=== PATIENT | female | born 1970 | race Caucasian/White ===

== ENCOUNTER 2017-12-12 05:20 | Day surgery (SDC) | payer OTHER ==
[2017-12-05 11:47] LABS: HEMATOCRIT 42.5 % (36.0-47.0); HEMOGLOBIN 15.1 g/dL (12.0-15.5); MEAN CORPUSCULAR HEMOGLOBIN 32.4 pg (27.0-33.4); MEAN CORPUSCULAR HGB CONC 35.6 g/dL (32.0-36.0); MEAN CORPUSCULAR VOLUME 91 fl (80-97); PLATELET COUNT 263 10^3/uL (150-450); RED BLOOD COUNT 4.67 10^6/uL (3.72-5.28); RED CELL DISTRIBUTION WIDTH 12.4 % (11.5-14.0)
[2017-12-05 12:24] LABS: ALANINE AMINOTRANSFERASE 15 U/L (9-52); ALBUMIN 4.5 g/dL (3.5-5.0); ALKALINE PHOSPHATASE 68 U/L (38-126); ANION GAP 13 (5-19); ASPARTATE AMINO TRANSFERASE 20 U/L (14-36); BILIRUBIN,DIRECT 0.3 mg/dL (0.0-0.4); BILIRUBIN,TOTAL 0.5 mg/dL (0.2-1.3); BLOOD UREA NITROGEN 15 mg/dL (7-20); CALCIUM 10.1 mg/dL (8.4-10.2); CARBON DIOXIDE 30 mmol/L (22-30); CHLORIDE 101 mmol/L (98-107); GLUCOSE 82 mg/dL (75-110); POTASSIUM 4.6 mmol/L (3.6-5.0); SODIUM 143.6 mmol/L (137-145); TOTAL PROTEIN 7.3 g/dL (6.3-8.2)
[~2017-12-12 05:20] MED LIST: CEFAZOLIN 2 GM/D5W RTU 2 GM/50 ML RTUPB IV SCH; LACTATED RINGERS 1000 ML IV PRN; LIDOCAINE 0.5% INJ-PF (5 MG/ML) 50 ML SDV SUBCUT PRN; NORMAL SALINE 1000 ML 1,000 ML IV PRN; RINGERS SOLUTION,LACTATED 1,000 ML IV PRN
[2017-12-12] MEDS ORDERED: PROPOFOL INJ 200 MG/20 ML VIAL IV ONE (06:40)
[2017-12-12] MEDS ORDERED: FENTANYL CITRATE INJ/PF 250 MCG/5 ML AMPULE ONE (06:40)
[2017-12-12] MEDS ORDERED: ONDANSETRON HCL INJ/PF 4 MG/2 ML SDV ONE (06:40)
[2017-12-12] MEDS ORDERED: MIDAZOLAM 2 MG/2 ML INJ ONE (06:40)
[2017-12-12] MEDS ORDERED: LIDOCAINE 2% INJ-PF (20 MG/ML) 10 ML AMPUL ONE (06:40)
[2017-12-12] MEDS ORDERED: BUPIVACAINE HCL 0.25 % INJ/PF (2.5 MG/1 ML) 30 ML VIAL ONE (06:41)
[2017-12-12] MEDS ORDERED: OXYCODONE-ACETAMINOPHEN 5-325 MG TABLET PO PRN ×3 (09:04→10:36)
[2017-12-12] MEDS ORDERED: MORPHINE SULFATE 10 MG/ML INJ IV PRN ×2 (09:04→10:36)
[2017-12-12] MEDS ORDERED: DIPHENHYDRAMINE HCL 50 MG/ML VIAL IV PRN (09:04)
[2017-12-12] MEDS ORDERED: FENTANYL CITRATE INJ/PF 100 MCG/2 ML AMPUL IV PRN ×3 (09:04)
[2017-12-12] MEDS ORDERED: MEPERIDINE HCL/PF INJ 25 MG/1 ML DISP.SYRIN IV PRN (09:04)
[2017-12-12] MEDS ORDERED: PROMETHAZINE HCL INJ 25 MG/1 ML VIAL IV PRN ×3 (09:04→10:37)
[2017-12-12] MEDS ORDERED: OXYCODONE HCL IR 5 MG TABLET PO PRN (10:36)
[2017-12-12] MEDS ORDERED: ONDANSETRON HCL INJ/PF 4 MG/2 ML SDV IV PRN (10:37)
[2017-12-12] MEDS ORDERED: NORMAL SALINE 1000 ML 1,000 ML IV ONE (10:45)
[2017-12-12] MEDS ORDERED: HYDROMORPHONE HCL 2 MG TABLET PO PRN (10:52)
[2017-12-12] MEDS ORDERED: KETOROLAC TROMETHAMINE INJ/PF 30 MG/1 ML SDV ONE (11:06)
--- NOTE | 2017-12-12 11:15 | OPERATIVE REPORT E ---
Operative Report NAME: TANI JACKSON : 1970 AGE: 47Y DATE OF SURGERY: 12/12/2017 ROOM: PREOPERATIVE DIAGNOSIS: 1. MENOMETRORRHAGIA, UNRESPONSIVE TO MEDICAL THERAPY. 2. UTERINE FIBROID. 3. CHRONIC PELVIC PAIN. POSTOPERATIVE DIAGNOSIS: 1. MENOMETRORRHAGIA, UNRESPONSIVE TO MEDICAL THERAPY. 2. UTERINE FIBROID. 3. CHRONIC PELVIC PAIN. OPERATION: 1. Robotic total laparoscopic hysterectomy. 2. Bilateral salpingectomy and remnants of the fallopian tubes. 3. Cystoscopy. SURGEON: Antoinette Wilkinson MD ANESTHESIA: General. ESTIMATED BLOOD LOSS: 100 mL. INTRAVENOUS FLUIDS: 1500 mL, 200 mL clear urine at end of procedure. COMPLICATIONS: None. INDICATION: The patient is a 47-year-old G2, P2 who has had menometrorrhagia for several years, who has attempted multiple regimens without resolution of her symptoms. The patient also has a history of uterine fibroids and chronic pain. The patient desires definitive surgical treatment. Counseling of robotic hysterectomy included but not limited to bleeding, infection, injury to surrounding organs or tissue, need of transfusion or the possibility of exploratory laparotomy in case there is bleeding that could not be identified or visualized during the surgical procedure or too many adhesions from her previous surgical history. The patient understood and consented to procedure and agreed to proceed to the operating room. FINDINGS: 1. Boggy adenomyosis-like uterus. 2. Remnants of fallopian tubes on the right and left with hydrosalpinx bilaterally. The patient has had a history of bilateral tubal ligation. 3. Normal ovaries bilaterally. 4. Normal cystoscopy findings. Normal ureters, efflux bilaterally and normal integrity of the bladder wall mucosa. DESCRIPTION OF PROCEDURE: The patient was taken to the operating room. General anesthesia was induced without difficulty. The patient was placed in the dorsal lithotomy position and was thoroughly prepped and draped in the usual sterile fashion. A bear-hugger was placed to maintain control of core body temperature. Ludwig catheter was placed in the bladder. A heavy-weighted speculum was inserted in the vaginal mucosa. A single-toothed tenaculum was placed on the anterior lip of the cervix. Cervical os was dilated with Hegar dilators. Hegar dilators were used to dilate the cervix. Two [id number] stitches around 3 and 9 o'clock were placed with anchoring stitches prior to placing the VCare. The VCare manipulator was attached to the uterus with a cervical ring and anchored to the stitches on the right and the left. The weighted speculum was removed from the vaginal mucosa. Single-toothed tenaculum was removed from the anterior lip of the cervix. Then, the courses of 2 sutures were placed on the lateral aspects of the cervix to be used as traction later in the case if needed along the Vcare, as well as they were anchored within the Vcare itself. A horizontal supraumbilical incision was performed. The Veress needle was introduced without difficulty. A drop test was performed and was successful. Carbon dioxide was infused until pneumoperitoneum was obtained and this was, of course, after performing the water drop test, which was successfully performed. The Veress needle was then removed. The supraumbilical incision was slightly extended and 12 mm trocar and the camera was introduced into the abdominal cavity under direct visualization without any difficulty. The trocar itself was removed. Robotic laparoscopic was placed in the abdominal cavity. Please see the above findings. Intraperitoneal placement was then confirmed. Local anesthesia was used at all ports prior to placing the surgery ports. Two 8 mm surgery ports were placed inferiorly to the umbilicus and lateral to the rectus muscles bilaterally. These ports were in the abdominal cavity under direct visualization. One was on the right lower and one on the left lower quadrant. An assistive port was then inserted in the right upper quadrant as well under direct visualization. Prior to performing the hysterectomy, the ureters on both sides, right and left, were both visualized and both had excellent peristalsis and were well in the visual field at all times. At this point, the fimbriated end of the fallopian tube on the right side was grasped, coagulated and transected with all the remnants of the fallopian tube with the hydrosalpinx within it, along the mesosalpinx to the cornual region. The utero-ovarian ligament was cauterized and transected. The round ligaments were cauterized and transected all the way down to the level of the uterine vessels. The right side of bladder flap was created without any difficulty and the contralateral side was performed in a similar fashion. Fimbriated end grasped, cauterized, and transected with the mesosalpinx all the way down to the cornual region. The round ligaments were cauterized and transected. Utero-ovarian ligament cauterized and transected all the way down to the level of the uterine vessels and then the bladder flap on this side was connected to the contralateral side where it was performed initially. The bladder was pushed far away from the cervical ring. At this point, an anterior colpotomy was performed and a circumscribing the cervix in a circumferential manner cauterizing it and transecting the colpotomy in a circumferential manner. Of course, at every point of the procedure, the ureters were both in visual coronado and well away from the surgical coronado at all times and they were both in normal peristalsis fashion. Once the ring was identified anteriorly, the anterior colpotomy was performed in a circumferential manner, the uterus and the remnants of the fallopian tubes were both removed and the vaginal cuff at this time was irrigated. Small blood vessels from the vaginal cuff were slightly oozing and those were cauterized very superficially, and then, at this point, the vaginal cuff was closed using the running V-Loc suture. Attention was turned to the ureters bilaterally. Again, they were both identified without any difficulty, peristalsing well away from the vaginal cuff, and they were both within normal appearance. A survey of the lateral pelvic sidewalls revealed excellent hemostasis. At this point, FloSeal was injected along the vaginal cuff for prophylactic measures for hemostasis. At this point, attention was turned to below to perform the cystoscopy portion. The cystoscope introduced without any difficulty. Bladder integrity was visualized. There were no foreign bodies or injuries to the bladder. There was excellent efflux from both ureteral orifices with strong efflux of flow that was identified with methylene blue. The methylene blue was given during the vaginal cuff closure per my request to anesthesia. At this point the cystoscope portion was done, the cystoscope was removed. The robot was undocked. The abdomen was desufflated. All trocars were removed. A 12 mm supraumbilical incision was repaired with a UR6 to reapproximate the fascia. Remaining incisions were closed with 4-0 Monocryl in a horizontal mattress fashion and in a running fashion for the supraumbilical and the right upper quadrant incisions were run with a 4-0 Monocryl stitch in continuous and subcuticular fashion. All sponge, lap, and instrument counts were noted to be correct x2 and the patient did receive preoperative IV antibiotics. The Ludwig bag was noted to contain clear urine at the end of the procedure with a little bit of blue hue and the patient had approximately 300 mL of urine output. Ludwig catheter was removed. The patient was extubated successfully in the recovery room in stable condition. The patient tolerated the procedure well and was sent to the recovery room in stable condition. DICTATING PHYSICIAN: Antoinette Wilkinson MD [id number] PHY#: [id number] ID: [id number] JOB#: [id number] ACCT: [id number] cc:Antoinette Wilkinson >
[2017-12-12 16:38] VITALS: BP 132/84
[2017-12-12] MEDS ORDERED: DIPHENHYDRAMINE HCL 25 MG CAPSULE PO PRN (16:45)
[2017-12-12] MEDS ORDERED: TRIAMCINOLONE ACETONIDE NS SCH (18:00)
[2017-12-12] MEDS ORDERED: TRETINOIN TP SCH (18:00)
[2017-12-12] MEDS ORDERED: NEOSTIGMINE METHYLSULFATE 10 MG/10 ML VIAL ONE (19:50)
[2017-12-12] MEDS ORDERED: GLYCOPYRROLATE INJ 0.4 MG/2 ML VIAL ONE (19:50)
[2017-12-12] MEDS ORDERED: ROCURONIUM BROMIDE INJ 50 MG/5 ML VIAL IV ONE (19:50)
[2017-12-13] MEDS ORDERED: (PENDING PHARMACY ID) (Glucosamine Sulfate Dipot Chlr [Glucosamine] 1,000 MG) PO SCH (10:00)
[2017-12-13] MEDS ORDERED: MULTIVITAMIN TABLET PO SCH (10:00)
[2017-12-13] MEDS ORDERED: CETIRIZINE 10 MG TABLET PO SCH (10:00)
[2017-12-13] MEDS ORDERED: CALCIUM CARBONATE 500 MG TABLET PO SCH (10:00)
== END 2017-12-12 17:10 | disposition home or self-care (01) ==
LOC: OROUT 05:20 → 2N 11:55 → OROUT 17:10
PROVIDERS: ATTEND Obstetrics & Gynecology
DX: D25.9 Leiomyoma of uterus, unspecified (principal); N72 Inflammatory disease of cervix uteri; N83.8 Other noninflammatory disorders of ovary, fallopian tube and broad ligament; N92.1 Excessive and frequent menstruation with irregular cycle; G89.29 Other chronic pain; R10.2 Pelvic and perineal pain; Z88.5 Allergy status to narcotic agent; Z87.891 Personal history of nicotine dependence
CPT/HCPCS: 58571; S2900; 36415; 80053; 81025; 840; 85027; 86850; 86900; 86901; 88307; J0690; J1885; J2250; J2405; J2704; J3010; J3490